=== PATIENT | female | born 1980 | race Caucasian/White ===

== ENCOUNTER 2023-05-14 02:47 | Emergency (ER) | payer SELFPAY | END 2023-05-14 03:08 | disposition home or self-care (01) | LOC: CSHERS 02:47 | DX: F10.129 Alcohol abuse with intoxication, unspecified (principal); I10 Essential (primary) hypertension | CPT/HCPCS: 99283 ==

== ENCOUNTER 2024-12-30 19:16 | Emergency (ER) | payer OTHER, SELFPAY ==
[2024-12-30] MEDS ORDERED: HYDROcodone/Acetaminophen 5/325 mg Tablet ONE (21:54)
[2024-12-30] MEDS ORDERED: Cyclobenzaprine 10 MG TAB ONE (21:54)
== END 2024-12-30 22:55 | disposition home or self-care (01) ==
LOC: CSHERS 19:16
DX: M54.31 Sciatica, right side (principal); I10 Essential (primary) hypertension
CPT/HCPCS: 72100; 99283